=== PATIENT | male | born 1940 | race Caucasian/White ===

== ENCOUNTER 2018-05-01 12:56 | Emergency (ER) | payer MEDICARE, BC ==
[~2018-05-01] VITALS: Ht 188 cm; Wt 98.0 kg
[~2018-05-01 12:56] MED LIST: CARV3.122 PO; PANT-47 PO; RIVA15TA PO
[2018-05-01 13:06] VITALS: BP 165/88
== END 2018-05-01 14:53 | disposition home or self-care (01) ==
LOC: ER 12:57
DX: S80.02XA Contusion of left knee, initial encounter (principal); I48.91 Unspecified atrial fibrillation; I11.0 Hypertensive heart disease with heart failure; I50.9 Heart failure, unspecified; Z86.711 Personal history of pulmonary embolism; Z98.890 Other specified postprocedural states; Z79.899 Other long term (current) drug therapy; Z96.652 Presence of left artificial knee joint; W18.40XA Slipping, tripping and stumbling without falling, unspecified, initial encounter; Y93.01 Activity, walking, marching and hiking; Y92.89 Other specified places as the place of occurrence of the external cause; Y99.8 Other external cause status
CPT/HCPCS: 73590; 99284

== ENCOUNTER 2018-05-13 11:08 | Inpatient (IN) | payer MEDICARE, BC ==
[~2018-05-13] VITALS: Ht 188 cm; Wt 99.8 kg
[2018-05-13] MEDS ORDERED: heparin 10,000 units/1 ML INJ IV ONE ×2 (11:35→13:30)
[2018-05-13] MEDS ORDERED: heparin 10,000 units/1 ML INJ IV PRN ×2 (11:35→13:30)
[2018-05-13 11:51] LABS: BASOPHILS % (AUTO) 0.2 % (0-1); EOSINOPHILS # (AUTO) 0.2 X10'3 (0-0.9); EOSINOPHILS % (AUTO) 1.8 % (0-6); HEMATOCRIT 41.1 % (42.0-52.0); HEMOGLOBIN 13.6 g/dl (14.0-17.9); LYMPHOCYTES # (AUTO) 1.6 X10'3 (1.1-4.8); LYMPHOCYTES % (AUTO) 18.2 % (21-51); MEAN CORPUSCULAR HEMOGLOBIN 31.8 PG (27.0-31.0); MEAN CORPUSCULAR HGB CONC 33.1 % (33.0-36.5); MEAN CORPUSCULAR VOLUME 95.9 FL (78-98); MEAN PLATELET VOLUME 7.5 FL (7.4-10.4); MONOCYTES # (AUTO) 0.8 X10'3 (0-0.9); MONOCYTES % (AUTO) 9.6 % (2-12); NEUTROPHILS # (AUTO) 6.1 X10'3 (1.8-7.7); NEUTROPHILS % (AUTO) 70.2 % (42-75); PLATELET COUNT 206 X10'3 (140-440); RED BLOOD COUNT 4.28 X10'6 (4.70-6.10); RED CELL DISTRIBUTION WIDTH 14.4 % (11.5-14.5); WHITE BLOOD COUNT 8.6 X10'3 (4.5-11.0)
[2018-05-13 12:05] LABS: ALANINE AMINOTRANSFERASE 23 U/L (12-78); ALBUMIN 3.6 G/DL (3.4-5.0); ALBUMIN/GLOBULIN RATIO 1.1 (1.1-1.5); ALKALINE PHOSPHATASE 119 IU/L (46-116); ANION GAP 9 (8-16); ASPARTATE AMINO TRANSFERASE 21 U/L (10-37); BILIRUBIN,TOTAL 0.7 MG/DL (0.1-1.0); BLOOD UREA NITROGEN 19 MG/DL (7-18); BUN/CREATININE RATIO 17.8 (5.4-32.0); CALCIUM 8.8 MG/DL (8.5-10.1); CHLORIDE 105 MMOL/L (99-107); CREATININE 1.07 MG/DL (0.60-1.10); GLUCOSE 99 MG/DL (70-104); SODIUM 139 MMOL/L (135-145); TOTAL CARBON DIOXIDE 24.6 MMOL/L (24-32); TOTAL PROTEIN 6.9 G/DL (6.4-8.2); eGFR 67 ML/MIN
[2018-05-13 12:06] LABS: INR 1.2 INR; PARTIAL THROMBOPLASTIN TIME 32 SECONDS (22-32); PROTHROMBIN TIME 11.7 SECONDS (9.0-12.0)
[2018-05-13] MEDS: heparin 25,000 UNIT/250ml bag 250 ML IV SCH ×2 (12:36→23:00)
[2018-05-13] MEDS ORDERED: iohexol 350MG/ML 100ml bottle IV ONE (13:18)
[2018-05-13] MEDS ORDERED: morphine 2 MG/ML inj. syringe IV PRN ×2 (13:30)
[2018-05-13] MEDS ORDERED: magnesium hydroxide 30ml (MOM) UD suspension PO PRN (13:30)
[2018-05-13] MEDS ORDERED: mag hydrox/Alum hydrox/simeth 30ml oral suspension PO PRN (13:30)
[2018-05-13] MEDS ORDERED: HYDROcodone/acetaminophen 5mg/325mg tablet PO PRN (13:30)
[2018-05-13] MEDS ORDERED: acetaminophen 325mg tablet PO PRN (13:30)
[2018-05-13] MEDS ORDERED: heparin 25,000 UNIT/250ml bag 250 ML IV SCH (13:30)
[2018-05-13] MEDS ORDERED: ondansetron/PF 4mg/2ml inj IV PRN (13:30)
[2018-05-13 16:30] VITALS: BP 161/75
[2018-05-13 19:00] VITALS: BP 166/94
[2018-05-13] MEDS ORDERED: QUIN20TA18 PO (20:17)
[2018-05-13] MEDS ORDERED: ACYC400T PO (20:17)
[2018-05-13] MEDS ORDERED: CLON0.2T PO (20:17)
[2018-05-13] MEDS: cloNIDine 0.1 mg tablet PO SCH (22:55)
[2018-05-13 23:00] VITALS: BP 153/85
[2018-05-14] VITALS (8 sets, daily range): BP systolic 126–158; BP diastolic 70–90
[2018-05-14 01:26] LABS: ALBUMIN 3.2 G/DL (3.4-5.0); ANION GAP 10 (8-16); BLOOD UREA NITROGEN 16 MG/DL (7-18); BUN/CREATININE RATIO 15.5 (5.4-32.0); CALCIUM 8.5 MG/DL (8.5-10.1); CHLORIDE 107 MMOL/L (99-107); CREATININE 1.03 MG/DL (0.60-1.10); GLUCOSE 93 MG/DL (70-104); POTASSIUM 3.7 MMOL/L (3.5-5.1); SODIUM 141 MMOL/L (135-145); TOTAL CARBON DIOXIDE 24.1 MMOL/L (24-32); eGFR 70 ML/MIN
[2018-05-14 01:40] LABS: BASOPHILS # (AUTO) 0.1 X10'3 (0-0.2); BASOPHILS % (AUTO) 0.8 % (0-1); EOSINOPHILS # (AUTO) 0.2 X10'3 (0-0.9); EOSINOPHILS % (AUTO) 2.7 % (0-6); HEMATOCRIT 40.9 % (42.0-52.0); HEMOGLOBIN 13.8 g/dl (14.0-17.9); LYMPHOCYTES % (AUTO) 27.3 % (21-51); MEAN CORPUSCULAR HEMOGLOBIN 32.3 PG (27.0-31.0); MEAN CORPUSCULAR HGB CONC 33.8 % (33.0-36.5); MEAN CORPUSCULAR VOLUME 95.7 FL (78-98); MEAN PLATELET VOLUME 8.9 FL (7.4-10.4); MONOCYTES # (AUTO) 0.6 X10'3 (0-0.9); MONOCYTES % (AUTO) 8.1 % (2-12); NEUTROPHILS # (AUTO) 4.2 X10'3 (1.8-7.7); NEUTROPHILS % (AUTO) 61.1 % (42-75); PLATELET COUNT 196 X10'3 (140-440); RED BLOOD COUNT 4.28 X10'6 (4.70-6.10); RED CELL DISTRIBUTION WIDTH 13.3 % (11.5-14.5); WHITE BLOOD COUNT 7.2 X10'3 (4.5-11.0)
[2018-05-14] MEDS: acyclovir 200 MG capsule PO SCH (07:23)
[2018-05-14] MEDS: lisinopril 20mg tablet PO SCH (07:23)
[2018-05-14] MEDS: carVEDilol 3.125mg tablet PO SCH ×2 (07:23→20:15)
[2018-05-14] MEDS: heparin 25,000 UNIT/250ml bag 250 ML IV SCH ×3 (07:41→15:07)
[2018-05-14] MEDS: cloNIDine 0.1 mg tablet PO SCH ×2 (12:20→21:32)
[2018-05-14] MEDS ORDERED: diatr meglu/diatrizoate 30ml oral sol.-(3 dose) bottle PO ONE (21:00)
[2018-05-15 02:00] VITALS: BP 139/93
[2018-05-15 03:06] LABS: BASOPHILS % (AUTO) 0.4 % (0-1); EOSINOPHILS # (AUTO) 0.2 X10'3 (0-0.9); EOSINOPHILS % (AUTO) 3.6 % (0-6); HEMATOCRIT 40.9 % (42.0-52.0); HEMOGLOBIN 13.6 g/dl (14.0-17.9); LYMPHOCYTES # (AUTO) 2.1 X10'3 (1.1-4.8); LYMPHOCYTES % (AUTO) 31.5 % (21-51); MEAN CORPUSCULAR HEMOGLOBIN 31.9 PG (27.0-31.0); MEAN CORPUSCULAR HGB CONC 33.3 % (33.0-36.5); MEAN CORPUSCULAR VOLUME 96.1 FL (78-98); MEAN PLATELET VOLUME 8.1 FL (7.4-10.4); MONOCYTES # (AUTO) 0.7 X10'3 (0-0.9); MONOCYTES % (AUTO) 10.2 % (2-12); NEUTROPHILS # (AUTO) 3.7 X10'3 (1.8-7.7); NEUTROPHILS % (AUTO) 54.3 % (42-75); PLATELET COUNT 188 X10'3 (140-440); RED BLOOD COUNT 4.26 X10'6 (4.70-6.10); RED CELL DISTRIBUTION WIDTH 14.3 % (11.5-14.5); WHITE BLOOD COUNT 6.8 X10'3 (4.5-11.0)
[2018-05-15 03:17] LABS: ALBUMIN 3.1 G/DL (3.4-5.0); ANION GAP 5 (8-16); BLOOD UREA NITROGEN 19 MG/DL (7-18); BUN/CREATININE RATIO 15.6 (5.4-32.0); CALCIUM 8.8 MG/DL (8.5-10.1); CHLORIDE 107 MMOL/L (99-107); CREATININE 1.22 MG/DL (0.60-1.10); GLUCOSE 94 MG/DL (70-104); POTASSIUM 4.1 MMOL/L (3.5-5.1); SODIUM 141 MMOL/L (135-145); TOTAL CARBON DIOXIDE 29.3 MMOL/L (24-32); eGFR 57 ML/MIN
[2018-05-15] MEDS: heparin 25,000 UNIT/250ml bag 250 ML IV SCH (03:30)
[2018-05-15 06:00] VITALS: BP 150/85
[2018-05-15] MEDS ORDERED: diatr meglu/diatrizoate 30ml oral sol.-(3 dose) bottle PO PRN (07:00)
[2018-05-15] MEDS ORDERED: diatr meglu/diatrizoate 30ml oral sol.-(3 dose) bottle PO ONE (07:00)
[2018-05-15] MEDS: lisinopril 20mg tablet PO SCH (07:29)
[2018-05-15] MEDS: acyclovir 200 MG capsule PO SCH (07:29)
[2018-05-15] MEDS: cloNIDine 0.1 mg tablet PO SCH (07:30)
[2018-05-15] MEDS: carVEDilol 3.125mg tablet PO SCH (07:34)
[2018-05-15] MEDS ORDERED: normal saline 1000ml 1,000 ML IV SCH (08:25)
[2018-05-15] MEDS ORDERED: iohexol 300mg/ml 100ml inj. ONE (10:04)
[2018-05-15 12:45] VITALS: BP 136/76
[2018-05-15] MEDS ORDERED: COR3.125T PO (14:54)
[2018-05-15] MEDS ORDERED: APIX5TAB3 PO (14:54)
[2018-05-15 15:58] VITALS: BP 142/91
[2018-05-18 13:32] LABS: ANTITHROMBIN ACTIVITY 71 % (75-135); ANTITHROMBIN ANTIGEN 68 % (72-124); PROTEIN S, FREE 90 % (57-157); PROTEIN S, TOTAL 90 % (60-150)
== END 2018-05-15 17:13 | disposition home health service (06) | DRG 299 ==
LOC: ER 11:08 → ED HOLD 13:30 → PCU 3S 16:30
PROVIDERS: ADMIT Internal Medicine; ATTEND Internal Medicine
PROC: B32T1ZZ Computerized Tomography (CT Scan) of Left Pulmonary Artery using Low Osmolar Contrast (ICD-10-PCS; principal; 2018-05-13)
PROC: B32S1ZZ Computerized Tomography (CT Scan) of Right Pulmonary Artery using Low Osmolar Contrast (ICD-10-PCS; 2018-05-13)
PROC: BW211ZZ Computerized Tomography (CT Scan) of Abdomen and Pelvis using Low Osmolar Contrast (ICD-10-PCS; 2018-05-15)
DX: I82.412 Acute embolism and thrombosis of left femoral vein (principal); I50.23 Acute on chronic systolic (congestive) heart failure; J98.11 Atelectasis; I11.0 Hypertensive heart disease with heart failure; I48.0 Paroxysmal atrial fibrillation; I49.5 Sick sinus syndrome; I82.512 Chronic embolism and thrombosis of left femoral vein; I82.532 Chronic embolism and thrombosis of left popliteal vein; I82.432 Acute embolism and thrombosis of left popliteal vein; I25.10 Atherosclerotic heart disease of native coronary artery without angina pectoris; S80.12XA Contusion of left lower leg, initial encounter; W18.39XA Other fall on same level, initial encounter; Z96.653 Presence of artificial knee joint, bilateral; Z90.49 Acquired absence of other specified parts of digestive tract; Z95.0 Presence of cardiac pacemaker; Z95.1 Presence of aortocoronary bypass graft; Z79.899 Other long term (current) drug therapy; Z79.01 Long term (current) use of anticoagulants; Z86.711 Personal history of pulmonary embolism; Y93.89 Activity, other specified; Y92.89 Other specified places as the place of occurrence of the external cause; Y99.8 Other external cause status
CPT/HCPCS: 36415; 71045; 71275; 74177; 80048; 80053; 83880; 84484; 85025; 85300; 85301; 85303; 85305; 85306; 85610; 85730; 87070; 93005; 93306; 93970; 96374; 99285; G0378; J1644; J7030; Q9963; Q9967

== ENCOUNTER 2019-01-02 10:33 | Emergency (ER) | payer MEDICARE, BC ==
[~2019-01-02] VITALS: Ht 188 cm; Wt 91.4 kg
[~2019-01-02 10:33] MED LIST changes: +APIX5TAB3 PO; -CARV3.122 PO; +CLON0.2T PO; +COR3.125T PO; +QUIN20TA18 PO; -RIVA15TA PO
[2019-01-02 12:03] LABS: BASOPHILS % (AUTO) 0.4 % (0-1); EOSINOPHILS # (AUTO) 0.2 X10'3 (0-0.9); EOSINOPHILS % (AUTO) 1.7 % (0-6); HEMATOCRIT 42.6 % (42.0-52.0); HEMOGLOBIN 14.3 g/dl (14.0-17.9); LYMPHOCYTES # (AUTO) 1.5 X10'3 (1.1-4.8); MEAN CORPUSCULAR HEMOGLOBIN 32.6 PG (27.0-31.0); MEAN CORPUSCULAR HGB CONC 33.6 g/dL (33.0-36.5); MEAN PLATELET VOLUME 8.4 FL (7.4-10.4); MONOCYTES # (AUTO) 0.9 X10'3 (0-0.9); MONOCYTES % (AUTO) 10.3 % (2-12); NEUTROPHILS # (AUTO) 6.3 X10'3 (1.8-7.7); NEUTROPHILS % (AUTO) 70.6 % (42-75); PLATELET COUNT 164 X10'3 (140-440); RED BLOOD COUNT 4.39 X10'6 (4.70-6.10); RED CELL DISTRIBUTION WIDTH 13.9 % (11.5-14.5); WHITE BLOOD COUNT 8.9 X10'3 (4.5-11.0)
[2019-01-02 12:18] LABS: ALANINE AMINOTRANSFERASE 28 U/L (12-78); ALBUMIN 3.2 G/DL (3.4-5.0); ALBUMIN/GLOBULIN RATIO 0.9 (1.1-1.5); ALKALINE PHOSPHATASE 124 IU/L (46-116); ANION GAP 5 (8-16); ASPARTATE AMINO TRANSFERASE 20 U/L (10-37); BILIRUBIN,TOTAL 1.1 MG/DL (0.1-1.0); BLOOD UREA NITROGEN 20 MG/DL (7-18); BUN/CREATININE RATIO 17.2 (5.4-32.0); CALCIUM 8.6 MG/DL (8.5-10.1); CHLORIDE 109 MMOL/L (99-107); CREATININE 1.16 MG/DL (0.60-1.10); GLUCOSE 109 MG/DL (70-104); POTASSIUM 3.9 MMOL/L (3.5-5.1); SODIUM 140 MMOL/L (135-145); TOTAL CARBON DIOXIDE 26.5 MMOL/L (24-32); TOTAL PROTEIN 6.8 G/DL (6.4-8.2); eGFR 61 ML/MIN
[2019-01-02 12:19] LABS: PARTIAL THROMBOPLASTIN TIME 33 SECONDS (22-32)
[2019-01-02] MEDS ORDERED: furosemide 20MG tablet PO ONE (12:50)
[2019-01-02] MEDS ORDERED: POTA20TA19 PO (13:13)
[2019-01-02] MEDS ORDERED: FURO-149 PO (13:13)
[2019-01-02 13:56] VITALS: BP 149/95
== END 2019-01-02 13:59 | disposition home or self-care (01) ==
LOC: ER 10:34
DX: I11.0 Hypertensive heart disease with heart failure (principal); I50.9 Heart failure, unspecified; I48.91 Unspecified atrial fibrillation; F10.99 Alcohol use, unspecified with unspecified alcohol-induced disorder; Z86.711 Personal history of pulmonary embolism; Z98.890 Other specified postprocedural states; Z79.01 Long term (current) use of anticoagulants; Z79.899 Other long term (current) drug therapy; Y90.9 Presence of alcohol in blood, level not specified
CPT/HCPCS: 36415; 71045; 80053; 83880; 84145; 84484; 85025; 85379; 85610; 85730; 93005; 99284